=== PATIENT | male | born 1995 | race Two or more races ===

== ENCOUNTER 2019-08-23 23:05 | Emergency (ER) | payer BC ==
[~2019-08-23] VITALS: Ht 175.3 cm; Wt 83.9 kg
[2019-08-24] MEDS ORDERED: ONDANSETRON ODT 4 MG TAB PO ONE (00:30)
[2019-08-24 00:39] VITALS: BP 134/108
== END 2019-08-24 02:19 | disposition home or self-care (01) ==
LOC: ER 23:14
DX: K52.9 Noninfective gastroenteritis and colitis, unspecified (principal)
CPT/HCPCS: 93005; 99283; Q0162